=== PATIENT | female | born 1965 | race Caucasian/White ===

== ENCOUNTER → 2017-06-14 | Outpatient (CLI) | payer MEDICAID ==
--- NOTE | 2017-06-14 07:10 | MR ---
EXAMINATION TYPE: MR shoulder LT wo con DATE OF EXAM: 06/14/2017 6:56 AM COMPARISON: NONE HISTORY: pain in lt shoulder, lump lateral aspect of shoulder, x 8 months TECHNIQUE: Multiplanar, multisequence imaging of the shoulder is performed without contrast. FINDINGS: There is no evidence of an os acromiale. There are minimal hypertrophic changes in the left AC joint. There is no evidence of a tear in the supraspinatus or infraspinatus tendons. The subscapularis tendo n appears intact. The cartilaginous glenoid labrum appears intact. Biceps tendon is normally situated within the biceps tendon groove and inserts normally upon the agustín ps anchor. There is some increased fluid surrounding the biceps tendon which may represent some perit endinosis. No osseous lesion is seen. IMPRESSION: 1. NO EVIDENCE OF A ROTATOR CUFF TEAR. 2. PROBABLE PERITENDINOSIS OF THE BICEPS TENDON.
== END | disposition home or self-care (01) ==
LOC: RADMRIMAIN 06:17
PROVIDERS: ATTEND Orthopaedic Surgery Sports Medicine
DX: M25.512 Pain in left shoulder (principal); R22.32 Localized swelling, mass and lump, left upper limb

== ENCOUNTER → 2017-12-25 | Outpatient (CLI) | payer MEDICAID ==
--- NOTE | 2017-12-27 13:27 | MM ---
Reason for exam: screening (asymptomatic). Last mammogram was performed 4 years and 9 months ago. History: Implants in both breasts, 1996. Took hormonal contraceptives for 5 years beginning at age 19. Physical Findings: A clinical breast exam by your physician is recommended on an annual basis and results should be correlated with mammographic findings. MG 3D Screen Mammo Imp/Cad Bilateral CC, MLO, and ID view(s) were taken. Prior study comparison: March 13, 2013, left diagnostic mammogram w/CAD. September 09, 2012, CAD bilateral diagnostic mammogram. May 10, 2010, mammogram, performed at [facility]. Bilateral breast implants. Lateral left breast nodularity present on 2009. Central and inferior left breast nodularity present on 2012. No significant changes when compared with prior studies. ASSESSMENT: Benign, BI-RAD 2 RECOMMENDATION: Routine screening mammogram of both breasts in 1 year.
== END | disposition home or self-care (01) ==
LOC: RADMAMWWP 13:58
PROVIDERS: ATTEND Obstetrics & Gynecology
DX: Z12.31 Encounter for screening mammogram for malignant neoplasm of breast (principal)
CPT/HCPCS: 77063; 77067

== ENCOUNTER → 2018-03-23 | Outpatient (CLI) | payer MEDICAID ==
[2018-03-23 10:21] LABS: HCT 40.3 % (34.0-46.0); MCH 29.4 pg (25.0-35.0); MCHC 34.6 g/dL (31.0-37.0); MCV 85.1 fL (80.0-100.0); Platelet Count 222 k/uL (150-450); RBC 4.74 m/uL (3.80-5.40); RDW 12.9 % (11.5-15.5); WBC 4.4 k/uL (3.8-10.6)
[2018-03-23 10:26] LABS: Appearance,Urine Clear (Clear); Bilirubin,Urine Negative (Negative); Blood,Urine Negative (Negative); Color,Urine Yellow; Glucose,Urine (UA) Negative (Negative); Ketones,Urine Negative (Negative); Leukocyte Esterase,Urine Negative (Negative); Nitrite,Urine Negative (Negative); Protein,Urine Negative (Negative); Specific Gravity,Urine 1.014 (1.001-1.035); Urobilinogen,Urine <2.0 mg/dL (<2.0)
[2018-03-23 10:34] LABS: Albumin 4.7 g/dL (3.5-5.0); Calcium 9.8 mg/dL (8.4-10.2); Potassium 4.1 mmol/L (3.5-5.1); Total Bilirubin 0.7 mg/dL (0.2-1.3); Total Protein 7.1 g/dL (6.3-8.2)
== END ==
LOC: LABWHC1 09:17
PROVIDERS: ATTEND Family Medicine
DX: Z00.00 Encounter for general adult medical examination without abnormal findings (principal)
CPT/HCPCS: 36415; 80053; 80061; 81003; 85027

== ENCOUNTER → 2020-07-06 | Outpatient (CLI) | payer MEDICAID ==
[2020-07-06 08:28] LABS: HCT 40.7 % (34.0-46.0); HGB 13.5 gm/dL (11.4-16.0); MCH 29.1 pg (25.0-35.0); MCHC 33.1 g/dL (31.0-37.0); Mean Platelet Volume 7.2; Platelet Count 215 k/uL (150-450); RBC 4.63 m/uL (3.80-5.40); RDW 12.9 % (11.5-15.5); WBC 4.5 k/uL (3.8-10.6)
[2020-07-06 16:14] LABS: African American GFR (CKD) 84.6 (60.0-200.0); Albumin 4.6 g/dL (3.80-4.90); Albumin/Globulin Ratio 2.3 (1.60-3.17); Anion Gap 9.5 mmol/L (4.00-12.00); BUN/Creat Ratio 17.78 Ratio (12.00-20.00); Calcium 9.5 mg/dL (8.7-10.3); Carbon Dioxide 24.5 mmol/L (21.6-31.8); Chol/HDL Ratio 2.01; LDL Cholesterol,Calculated 75.6 mg/dL (0.0-131.0); Potassium 3.9 mmol/L (3.5-5.5); Total Bilirubin 0.9 mg/dL (0.2-1.2); Total Protein 6.6 g/dL (6.2-8.2); VLDL Calculation 13.4 mg/dL (5.00-40.00)
== END | disposition home or self-care (01) ==
LOC: LABWHC1 07:27
PROVIDERS: ATTEND Family Medicine
DX: Z00.00 Encounter for general adult medical examination without abnormal findings (principal); R53.83 Other fatigue
CPT/HCPCS: 36415; 80053; 80061; 82306; 84443; 85027

== ENCOUNTER 2021-01-29 22:41 | Emergency (ER) | payer MEDICAID ==
[2021-01-29 22:47] VITALS: BP 137/85; PULSE 80; RESP 16; TEMP 97.8
--- NOTE | 2021-01-29 23:08 | XR ---
EXAMINATION TYPE: XR finger LT DATE OF EXAM: 01/29/2021 COMPARISON: NONE HISTORY: Laceration TECHNIQUE: 3 views FINDINGS: I see no fracture nor dislocation. Joint spaces are fairly normal. IP joint spaces are fair ly normal. IMPRESSION: Negative left index finger exam.
[2021-01-30] MEDS ORDERED: DIPH,PERTUS(ACELL)TETVAC-LF 0.5 ML VIAL IM ONE (00:08)
[2021-01-30] MEDS ORDERED: TOPICAL SKIN ADHESIVE 1 EACH AMP TOPICAL ONE (00:08)
--- NOTE | 2021-01-30 00:11 | ED ---
Wound/Laceration HPI - General Chief Complaint: Wound/Laceration Stated Complaint: Left finger laceraction Time Seen by Provider: 01/29/21 23:52 Source: patient, RN notes reviewed Mode of arrival: ambulatory Limitations: no limitations - History of Present Illness Initial Comments: Patient is a 55-year-old female presents emergency Department with a right fifth finger laceration on the distal pad. She notes that she cut it on a wine glass. The laceration is clean and nonbleeding. She knows that she denied any real pain. Does not want any pain medications. She doesn't she did wash it with soap and water before coming in. She does not remember the last time she had tetanus shot and also has been a long time. She denied any chest pain first breath headache nausea vomiting diarrhea comes patient 51 chills. - Related Data Allergies Allergy/AdvReac Type Severity Reaction Status Date / Time Penicillins Allergy Rash/Hives Verified 01/29/21 22:48 codeine AdvReac Nausea & Verified 01/29/21 22:48 Vomiting Review of Systems ROS Statement: Those systems with pertinent positive or pertinent negative responses have been documented in the HPI. ROS Other: All systems not noted in ROS Statement are negative. Past Medical History Past Medical History: No Reported History History of Any Multi-Drug Resistant Organisms: None Reported Past Surgical History: No Surgical Hx Reported, Section Additional Past Surgical History / Comment(s): tumor/muscle removed on left upper arm. Past Psychological History: No Psychological Hx Reported Smoking Status: Never smoker Past Alcohol Use History: Occasional Past Drug Use History: None Reported General Exam Limitations: no limitations General appearance: alert, in no apparent distress Head exam: Present: atraumatic, normocephalic, normal inspection Eye exam: Present: normal appearance, PERRL, EOMI. Absent: scleral icterus, conjunctival injection, periorbital swelling ENT exam: Present: normal exam, mucous membranes moist Neck exam: Present: normal inspection. Absent: tenderness, meningismus, lymphadenopathy Respiratory exam: Present: normal lung sounds bilaterally. Absent: respiratory distress, wheezes, rales, rhonchi, stridor Cardiovascular Exam: Present: regular rate, normal rhythm, normal heart sounds. Absent: systolic murmur, diastolic murmur, rubs, gallop, clicks GI/Abdominal exam: Present: soft, normal bowel sounds. Absent: distended, tenderness, guarding, rebound, rigid Extremities exam: Present: normal inspection, full ROM, normal capillary refill. Absent: tenderness, pedal edema, joint swelling, calf tenderness Neurological exam: Present: alert, oriented X3, CN II-XII intact Psychiatric exam: Present: normal affect, normal mood Skin exam: Present: warm, dry, intact, normal color, other (Small once every laceration to the right fifth digit at the distal pad.). Absent: rash Course Vital Signs 01/29/21 01/30/21 22:45 00:01 Temperature 97.8 F Pulse Rate 80 Respiratory 16 16 Rate Blood Pressure 137/85 O2 Sat by Pulse 100 Oximetry Procedures - Laceration Laceration #1 Consent Obtained: verbal consent Indication: laceration Site: hand Size (cm): 1 Description: linear Pre-repair: irrigated extensively Type of Sutures: other (Exofin) Technique: other (Exofin) Patient Tolerated Procedure: well, no complications Medical Decision Making - Medical Decision Making 55-year-old female with laceration of the fifth right digit. Tetanus immunization, exofin ordered. Case discussed with Dr. Black, decided patient discharged home. Disposition Clinical Impression: Laceration Disposition: HOME SELF-CARE Condition: Stable Instructions (If sedation given, give patient instructions): Laceration (ED) Additional Instructions: Please return to the Emergency Department if symptoms worsen or any other concerns. Follow-up primary care in 2-4 days. Avoid any abrasive handwashing for the first 2 days. Skin glue should wear off naturally on its own within 5-7 days. Take [id number] pain medication as needed for pain. Is patient prescribed a controlled substance at d/c from ED?: No Referrals: Leopoldo Ryan MD [Primary Care Provider] - 1-2 days Time of Disposition: 00:29
== END 2021-01-30 00:35 | disposition home or self-care (01) ==
LOC: EC 22:41
DX: S61.216A Laceration without foreign body of right little finger without damage to nail, initial encounter (principal); Z23 Encounter for immunization; X58.XXXA Exposure to other specified factors, initial encounter
CPT/HCPCS: 12001; 90471; 90715; 99283

== ENCOUNTER → 2023-10-23 | Outpatient (CLI) | payer MEDICAID ==
[2023-10-23 11:08] LABS: HCT 41.6 % (37.2-46.3); HGB 13.7 g/dL (12.0-15.0); MCH 28.4 pg (27.0-32.0); MCHC 32.9 g/dL (32.0-37.0); MCV 86.3 FL (80.0-97.0); Mean Platelet Volume 9.9 FL (9.5-12.2); NRBC Per 100 WBC 0 X 10*3/uL (0.00-0.01); Platelet Count 216 X 10*3/uL (140-440); RBC 4.82 X 10*6/uL (4.10-5.20); RDW 12.9 % (11.5-14.5); WBC 5.18 X 10*3/uL (4.50-10.00)
[2023-10-23 11:20] LABS: ALT 19 U/L (8-44); AST 25 U/L (13-35); Albumin 4.7 g/dL (3.8-4.9); Albumin/Globulin Ratio 2.24 Ratio (1.60-3.17); Alkaline Phosphatase 87 U/L (41-126); BUN/Creat Ratio 22.89 Ratio (12.00-20.00); Blood Urea Nitrogen 20.6 mg/dL (9.0-27.0); Carbon Dioxide 26.1 mmol/L (21.6-31.8); Chloride 106 mmol/L (96-109); Globulin 2.1 g/dL (1.6-3.3); Glucose 99 mg/dL (70-110); LDL Cholesterol,Calculated 106.8 mg/dL (0.0-131.0); Potassium 3.9 mmol/L (3.5-5.5); Sodium 145 mmol/L (135-145); Total Bilirubin 0.5 mg/dL (0.3-1.2); Total Protein 6.8 g/dL (6.2-8.2); VLDL Calculation 15.62 mg/dL (5.00-40.00)
== END | disposition home or self-care (01) ==
LOC: LABWHC1 06:59
PROVIDERS: ATTEND Family Medicine
DX: Z00.00 Encounter for general adult medical examination without abnormal findings (principal)
CPT/HCPCS: 36415; 80053; 80061; 85027

== ENCOUNTER → 2024-01-07 | Outpatient (CLI) | payer MEDICAID ==
--- NOTE | 2024-01-08 22:18 | MM ---
Reason for Exam: Screening (asymptomatic). Last mammogram was performed 6 year(s) and 1 month(s) ago. Patient History: Menarche at age 15. First Full-Term at age 23. Postmenopausal. Hormonal Contraceptives for 5 years from age 19 until age 24. 1997, Bilateral Implants. Risk Values: Christa 5 year model risk: 1.0%. NCI Lifetime model risk: 6.5%. Prior Study Comparison: 09/09/2012 Bilateral Diagnostic Mammogram, [facility]. 03/13/2013 Left Diagnostic Mammogram, [facility]. 12/25/2017 Bilateral Screening Mammogram, [facility]. Tissue Density: The breast tissue is heterogeneously dense. This may lower the sensitivity of mammography. Findings: Analyzed By CAD. Prepectoral saline implants are demonstrated. Chronic nodularity on the left. There is no suspicious group of microcalcifications or new suspicious mass in either breast. Overall Assessment: Benign, BI-RAD 2 Management: Screening Mammogram of both breasts in 1 year. . Patient should continue monthly self-breast exams. A clinical breast exam by your physician is recommended on an annual basis. This exam should not preclude additional follow-up of suspicious palpable abnormalities. Note on Christa scores and lifetime risk: 1. A Christa score greater than 3% is considered moderate risk. If this is the case, consider specialist referral to assess eligibility for a risk reducing agent. 2. If overall lifetime risk for the development of breast cancer is 20% or higher, the patient may qualify for future screening with alternating mammogram and breast MRI. Electronically signed and approved by: Berlin Pate M.D. Radiologist
== END | disposition home or self-care (01) ==
LOC: RADMAMWWP 06:56
PROVIDERS: ATTEND Family Medicine
DX: Z12.31 Encounter for screening mammogram for malignant neoplasm of breast (principal); Z78.0 Asymptomatic menopausal state
CPT/HCPCS: 77067

== ENCOUNTER → 2024-01-22 | Outpatient (CLI) | payer MEDICAID ==
[2024-01-22 09:45] VITALS: BP 114/79; PULSE 73; RESP 17; TEMP 97.9
--- NOTE | 2024-01-22 09:49 | P.HPOB ---
History of Present Illness H&P Date: 01/22/24 Chief Complaint: The patient is here for her routine gynecologic exam. This is a 58-year-old 013 with an LMP of 2003. The patient is here to establish with this office. It has been about 6 years since her last pelvic exam. She previously saw Dr. Villagran for her gynecologic care. She is without gynecologic complaints and denies any postmenopausal bleeding. She did go through an early menopause at age 39 and thinks it may have been related to a medication she was taking at the time. Review of Systems Her weight has been stable. She denies respiratory or cardiac problems. GI: She feels like she has a "nervous" stomach today. 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 Early menopause at age 39. History of Any Multi-Drug Resistant Organisms: None Reported Past Surgical History: No Surgical Hx Reported, Section Additional Past Surgical History / Comment(s): tumor/muscle removed on left upper arm. section 2. Past Psychological History: No Psychological Hx Reported Smoking Status: Former smoker, Never smoker Past Alcohol Use History: Occasional (2 drinks per week.) Additional Past Alcohol Use History / Comment(s): Smoked from age [age]. Past Drug Use History: None Reported Additional History: She has been since 1987. 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 - Past Family History Mother Family Medical History: Thyroid Disorder Additional Family Medical History / Comment(s): Maternal grandmother had CHF. She has no known family history of cancer of the breast, uterus, ovaries, or colon. Father Family Medical History: Cancer Additional Family Medical History / Comment(s): Skin cancer. Medications and Allergies Home Medications Medication Instructions Recorded Confirmed Type Biotin 1 mcg PO DAILY 01/22/24 01/22/24 History Cholecalciferol [Vitamin D3 (125 125 mcg PO DAILY 01/22/24 01/22/24 History Mcg = 5000 Iu)] L.acidoph,Paracasei, B.lactis 1 cap PO DAILY 01/22/24 01/22/24 History [Probiotic] Allergies Allergy/AdvReac Type Severity Reaction Status Date / Time Penicillins Allergy Rash/Hives Verified 01/22/24 09:14 codeine AdvReac Nausea & Verified 01/22/24 09:14 Vomiting Exam Vital Signs Temp Pulse Resp BP Pulse Ox 01/22/24 09:14 97.9 F 73 17 114/79 97 Intake and Output 01/21/24 01/22/24 01/22/24 22:59 06:59 14:59 Other: Weight 55.792 kg Height 5 feet 2 inches, weight 123 pounds, BMI 22.5. This is a well-developed well-nourished white female who is alert and oriented times 3 in no acute distress. HEENT: Within normal limits. NECK: Supple without mass or thyromegaly. CHEST AND LUNGS: Clear to auscultation. HEART: Regular rate and rhythm. BREASTS: Are without mass or discharge. Breasts are consistent with bilateral implants. AXILLARY EXAM: Negative for adenopathy. BACK: Negative for CVA tenderness. ABDOMEN: Soft, nontender, without palpable masses. PELVIC EXAM: Normal external genitalia with mild atrophy. Cervix and vagina appear normal with mild atrophy. The cervix is somewhat stenotic secondary to atrophy. There is no unusual discharge. There is no evidence of prolapse. The uterus is midposition, nongravid size and nontender. There are no palpable adnexal masses or tenderness. RECTAL EXAM: Rectovaginal exam is negative for mass or tenderness and is negative for occult blood. EXTREMITIES: Nontender. IMPRESSION: 1. 58-year-old menopausal female with normal gynecologic exam. 2. History of premature menopause at age 39. PLAN: 1. Pap smear cotest was performed. 2. Self breast awareness was discussed with the patient. We have also discussed symptoms associated with inflammatory breast cancer. 3. Screening mammogram was done on 01/07/2024 and was benign. She will repeat this after 1 year. 4. Osteoporosis prevention was discussed. I have stressed the importance of adequate calcium, vitamin D and regular exercise. Recommended amounts of calcium and vitamin D were also discussed. I recommended bone density testing since she does have the risk factor of her premature menopause. She would like to do this next year at her annual well woman examination. 5. She was advised to return in one year for her annual well woman exam.
== END ==
LOC: WWCWWP 08:14
PROVIDERS: ATTEND Obstetrics & Gynecology
DX: E28.319 Asymptomatic premature menopause (principal); Z78.0 Asymptomatic menopausal state; Z87.891 Personal history of nicotine dependence; Z88.0 Allergy status to penicillin; Z88.5 Allergy status to narcotic agent

== ENCOUNTER → 2024-11-20 | Outpatient (CLI) | payer MEDICAID ==
[2024-11-20 10:32] LABS: HCT 41.5 % (37.2-46.3); HGB 13.8 g/dL (12.0-15.0); MCH 28.5 pg (27.0-32.0); MCHC 33.3 g/dL (32.0-37.0); MCV 85.6 FL (80.0-97.0); Mean Platelet Volume 9.4 FL (9.5-12.2); NRBC Per 100 WBC 0 X 10*3/uL (0.00-0.01); Platelet Count 231 X 10*3/uL (140-440); RBC 4.85 X 10*6/uL (4.10-5.20); RDW 12.7 % (11.5-14.5); WBC 5.39 X 10*3/uL (4.50-10.00)
[2024-11-20 10:57] LABS: ALT 24 U/L (8-44); AST 22 U/L (13-35); Albumin 4.6 g/dL (3.8-4.9); Alkaline Phosphatase 83 U/L (41-126); BUN/Creat Ratio 28.62 Ratio (12.00-20.00); Blood Urea Nitrogen 22.9 mg/dL (9.0-27.0); Calcium 9.6 mg/dL (8.7-10.3); Carbon Dioxide 24.9 mmol/L (21.6-31.8); Chloride 106 mmol/L (96-109); Chol/HDL Ratio 2.16 Ratio; Glucose 102 mg/dL (70-110); LDL Cholesterol,Calculated 97.5 mg/dL (0.0-131.0); Potassium 3.8 mmol/L (3.5-5.5); Sodium 143 mmol/L (135-145); T4, Free (Free Thyroxine) 1.09 ng/dL (0.80-1.80); Total Bilirubin 0.6 mg/dL (0.3-1.2); Total Protein 6.6 g/dL (6.2-8.2); VLDL Calculation 17.88 mg/dL (5.00-40.00)
== END | disposition home or self-care (01) ==
LOC: LABWHC1 07:01
PROVIDERS: ATTEND Family Medicine
DX: Z00.00 Encounter for general adult medical examination without abnormal findings (principal); Z86.39 Personal history of other endocrine, nutritional and metabolic disease
CPT/HCPCS: 36415; 80053; 80061; 84439; 84481; 85027